=== PATIENT | female | born 1955 | race Caucasian/White ===

== ENCOUNTER 2019-07-08 15:39 | Emergency (ER) | payer OTHER ==
[~2019-07-08] VITALS: Ht 160 cm; Wt 65.8 kg
== END 2019-07-08 20:42 | disposition home or self-care (01) ==
LOC: ER 15:39
DX: K29.70 Gastritis, unspecified, without bleeding (principal)

== ENCOUNTER 2024-12-04 09:05 | Outpatient (CLI) | payer OTHER | END 2024-12-04 09:06 | disposition home or self-care (01) | LOC: SONOGRAMA 09:05 | PROVIDERS: ATTEND Pathology Anatomic Pathology & Clinical Pathology | DX: D34 Benign neoplasm of thyroid gland (principal); E07.89 Other specified disorders of thyroid; E04.2 Nontoxic multinodular goiter ==